=== PATIENT | female | born 1980 | race African-American/Black ===

== ENCOUNTER 2017-11-05 13:34 | Inpatient (IN) ==
[2017-11-05] MEDS ORDERED: MAGNESIUM SULF RIDER 100 ML IV ONE (14:00)
[2017-11-05 14:25] LABS: Basophils # 0.1 10*3/uL (0.0-0.2); Basophils % 0.5 % (0.0-0.8); Eosinophils # 0.4 10*3/uL (0.0-0.87); Eosinophils % 2.6 % (0.00-10.9); Hematocrit 38.3 VOL% (35.7-47.0); Hemoglobin 13.3 GM/DL (12.0-16.0); Immature Granulocytes % 0.9 %; Immature Granulocytes Absolute 0.15 #; Lymphocytes # 2.4 10*3/uL (1.4-4.0); Mean Corpuscular HGB Conc 34.7 GM/DL (32-36); Mean Corpuscular Hemoglobin 35 PG (27-34); Mean Corpuscular Volume 99.2 FL (87-102); Mean Platelet Volume 11.3 FL (9.6-12.0); Monocytes # 1.1 10*3/uL (0.11-0.8); Monocytes % 6.2 % (1.7-12.7); Neutrophils # 12.9 10*3/uL (1.4-7.4); Neutrophils % 75.8 % (38.7-73.9); Platelet Count 171 T/CUMM (130-400); Red Blood Count 3.86 MC/CUMM (3.8-5.5); Red Cell Distribution Width 13.3 % (9.3-17.3)
[2017-11-05] MEDS: AMPICILLIN INJ 2,000 MG in SODIUM CHLORIDE 0.9% 100 ML IV SCH ×2 (14:29→20:50)
[2017-11-05] MEDS: LACTATED RINGERS 1,000 ML IV SCH ×2 (14:31→21:01)
[2017-11-05] MEDS ORDERED: MAGNESIUM SULF DRIP 40 GM/1,000 ML ML IV ONE (15:07)
[2017-11-05] MEDS ORDERED: CALCIUM GLUCONATE 1,000 MG in SODIUM CHLORIDE 0.9% 100 ML IV PRN (15:09)
[2017-11-05 15:22] LABS: Apearance,Urine CLEAR (Clear); Bilirubin,Urine Negative (Negative); Blood, Urine Negative (Negative); Glucose,Urine (UA) Negative (Negative); Ketones,Urine Negative (Negative); Mucus,Urine Occasional /LPF (Occasional); Nitrite,Urine Negative (Negative); Protein,Urine Negative; RBC,Urine 1 /HPF (0-4); Squamous Epithelial Cell,Urine Occasional /HPF (0-10); Urine Color Yellow (Yellow); Urine Specific Gravity 1.013 (1.001-1.035); Urine Urobilinogen < 2.0 EU/DL (0.2-1.0); WBC,Urine 1 /HPF (0-6)
[2017-11-05] MEDS: MAGNESIUM SULF DRIP 40 GM/1,000 ML ML IV SCH (15:32)
[2017-11-05 15:35] LABS: Barbiturates Screen,Urine Negative (Negative); Benzodiazepines Screen,Urine Negative (Negative); Cannabinoid Screen,Urine Positive (Negative); Opiate Screen,Urine Negative (Negative); Phencyclidine Screen,Urine Negative (Negative)
[2017-11-05] MEDS ORDERED: MAGNESIUM SULF RIDER 2 GM in PREMIX 1 EACH IV SCH (18:00)
[2017-11-05] MEDS: ONDANSETRON 4 MG/2 ML VIAL IV PRN (19:41)
[2017-11-05] MEDS: BUTORPHANOL 2 MG/ML VIAL IV PRN (22:46)
[2017-11-05] MEDS: PROMETHAZINE 25 MG/1 ML VIAL IM PRN (23:33)
[2017-11-06] MEDS: AMPICILLIN INJ 2,000 MG in SODIUM CHLORIDE 0.9% 100 ML IV SCH ×4 (02:36→20:00)
[2017-11-06] MEDS: ACETAMINOPHEN 500 MG TABLET PO PRN ×2 (02:39→22:44)
[2017-11-06] MEDS: ONDANSETRON 4 MG/2 ML VIAL IV PRN ×3 (06:38→20:00)
[2017-11-06] MEDS ORDERED: AZITHROMYCIN 250 MG TABLET PO ONE (09:00)
[2017-11-06] MEDS: LACTATED RINGERS 1,000 ML IV SCH (09:49)
[2017-11-06] MEDS: MAGNESIUM SULF DRIP 40 GM/1,000 ML ML IV SCH (11:15)
[2017-11-06] MEDS ORDERED: NIFEdipine 10 MG CAPSULE PO SCH (19:30)
[2017-11-06] MEDS: PROMETHAZINE 25 MG/1 ML VIAL IM PRN (20:00)
[2017-11-06] MEDS: DOCUSATE SODIUM 100 MG CAPSULE PO SCH (22:26)
[2017-11-07] MEDS: AMPICILLIN INJ 2,000 MG in SODIUM CHLORIDE 0.9% 100 ML IV SCH ×2 (02:30→08:39)
[2017-11-07] MEDS: NIFEdipine 10 MG CAPSULE PO SCH ×6 (04:00→19:59)
[2017-11-07] MEDS: ONDANSETRON 4 MG/2 ML VIAL IV PRN ×2 (08:41→21:50)
[2017-11-07 14:44] LABS: Basophils # 0.1 10*3/uL (0.0-0.2); Basophils % 0.4 % (0.0-0.8); Eosinophils # 0.4 10*3/uL (0.0-0.87); Eosinophils % 2.4 % (0.00-10.9); Hematocrit 40.1 VOL% (35.7-47.0); Hemoglobin 13.9 GM/DL (12.0-16.0); Immature Granulocytes Absolute 0.17 #; Lymphocytes # 2.3 10*3/uL (1.4-4.0); Lymphocytes % 14.1 % (21.3-54.2); Mean Corpuscular HGB Conc 34.7 GM/DL (32-36); Mean Corpuscular Hemoglobin 35 PG (27-34); Mean Corpuscular Volume 101.3 FL (87-102); Mean Platelet Volume 10.9 FL (9.6-12.0); Monocytes # 1.3 10*3/uL (0.11-0.8); Monocytes % 8.1 % (1.7-12.7); Neutrophils # 12.2 10*3/uL (1.4-7.4); Platelet Count 187 T/CUMM (130-400); Red Blood Count 3.96 MC/CUMM (3.8-5.5); Red Cell Distribution Width 13.4 % (9.3-17.3); White Blood Count 16.5 T/CUMM (4-12)
[2017-11-07 15:08] LABS: Albumin 2.8 G/DL (3.4-5.0); Bilirubin,Total 0.5 MG/DL (0.2-1.0); Calcium 7.7 MG/DL (8.5-10.1); Potassium 3.6 MMOL/L (3.5-5.1); Total Protein 7.1 G/DL (6.4-8.3)
[2017-11-07 15:55] LABS: Apearance,Urine CLEAR (Clear); Bacteria,Urine Occasional /HPF (Few); Bilirubin,Urine Negative (Negative); Blood, Urine Small mg/dL (Negative); Glucose,Urine (UA) Negative (Negative); Ketones,Urine 20 mg/dL (Negative); Mucus,Urine Occasional /LPF (Occasional); Nitrite,Urine Negative (Negative); Protein,Urine Negative; RBC,Urine 3 /HPF (0-4); Squamous Epithelial Cell,Urine Occasional /HPF (0-10); Urine Color Yellow (Yellow); Urine Specific Gravity 1.011 (1.001-1.035); WBC,Urine 2 /HPF (0-6)
[2017-11-07] MEDS ORDERED: METOCLOPRAMIDE 10 MG TABLET PO SCH (16:30)
[2017-11-07] MEDS ORDERED: AMPICILLIN 500 MG CAPSULE PO SCH (18:14)
[2017-11-07] MEDS ORDERED: LACTATED RINGERS 1,000 ML IV SCH (19:00)
[2017-11-07] MEDS: DOCUSATE SODIUM 100 MG CAPSULE PO SCH (21:49)
[2017-11-07] MEDS ORDERED: AMOXICILLIN 500 MG CAPSULE PO SCH (22:00)
[2017-11-08 00:09] VITALS: BP 113/73
[2017-11-08] MEDS: ONDANSETRON 4 MG/2 ML VIAL IV PRN (03:06)
[2017-11-08] MEDS: PROMETHAZINE 25 MG/1 ML VIAL IM PRN (03:06)
[2017-11-08] MEDS: BUTORPHANOL 2 MG/ML VIAL IV PRN (04:36)
[2017-11-08] MEDS: NIFEdipine 10 MG CAPSULE PO SCH ×2 (04:52)
[2017-11-08 05:21] LABS: Basophils % 0.2 % (0.0-0.8); Eosinophils # 0.1 10*3/uL (0.0-0.87); Eosinophils % 0.9 % (0.00-10.9); Hematocrit 36.5 VOL% (35.7-47.0); Hemoglobin 13.2 GM/DL (12.0-16.0); Immature Granulocytes % 0.7 %; Immature Granulocytes Absolute 0.07 #; Lymphocytes # 0.6 10*3/uL (1.4-4.0); Lymphocytes % 6.4 % (21.3-54.2); Mean Corpuscular HGB Conc 36.2 GM/DL (32-36); Mean Corpuscular Hemoglobin 35 PG (27-34); Mean Corpuscular Volume 97.1 FL (87-102); Mean Platelet Volume 10.6 FL (9.6-12.0); Monocytes # 0.1 10*3/uL (0.11-0.8); Monocytes % 1.3 % (1.7-12.7); NRBC # 0.02 10*3/uL; Neutrophils # 8.6 10*3/uL (1.4-7.4); Neutrophils % 90.5 % (38.7-73.9); Platelet Count 159 T/CUMM (130-400); Red Blood Count 3.76 MC/CUMM (3.8-5.5); Red Cell Distribution Width 13.2 % (9.3-17.3); White Blood Count 9.5 T/CUMM (4-12)
[2017-11-08] MEDS ORDERED: LIDOCAINE 1% 50 ML VIAL ONE (05:32)
[2017-11-08] MEDS ORDERED: miSOPROStol 200 MCG TABLET ONE (05:32)
[2017-11-08] MEDS ORDERED: SODIUM CHLORIDE 0.9% 1,000 ML IV PRN (05:32)
[2017-11-08] MEDS ORDERED: CARBOPROST TROMETHAMINE 250 MCG/ML AMP IM ONE ×2 (05:33→06:42)
[2017-11-08] MEDS ORDERED: METHYLERGONOVINE 0.2 MG/1 ML AMP ONE ×3 (05:33→06:33)
[2017-11-08] MEDS ORDERED: OXYTOCIN/LR 20 UNIT/1,000 ML BAG IV ONE ×2 (05:34→06:59)
[2017-11-08] MEDS ORDERED: CITRIC ACID/SODIUM CITRATE 30 ML UDCUP ONE (05:54)
[2017-11-08] MEDS ORDERED: FAMOTIDINE 20 MG/2 ML VIAL IV ONE (06:01)
[2017-11-08] MEDS ORDERED: ceFAZolin 2,000 MG in PREMIX 1 EACH IV ONE (06:03)
[2017-11-08] MEDS ORDERED: CITRIC ACID/SODIUM CITRATE 30 ML UDCUP PO ONE (06:30)
[2017-11-08] MEDS ORDERED: RHO(D) IMMUNE GLOBULIN 300 MCG SYRINGE IM ONE (06:59)
[2017-11-08] MEDS ORDERED: ACETAMINOPHEN 325 MG TABLET PO PRN (06:59)
[2017-11-08] MEDS ORDERED: BENZOCAINE 20%/MENTHOL 0.5% SPRAY 56 GM CAN TOP PRN (06:59)
[2017-11-08] MEDS ORDERED: HYDROCORTISONE 2.5% RECTAL CREAM 30 GM TUBE TOP PRN (06:59)
[2017-11-08] MEDS ORDERED: LANOLIN 50% CREAM 0.3 OZ TUBE TOP PRN (06:59)
[2017-11-08] MEDS ORDERED: DIPH/TET/ACEL PERT BOOSTER VACCINE 0.5 ML VIAL IM ONE (06:59)
[2017-11-08] MEDS ORDERED: ONDANSETRON 4 MG/2 ML VIAL IV PRN (06:59)
[2017-11-08] MEDS ORDERED: IBUPROFEN 800 MG TABLET PO PRN (06:59)
[2017-11-08] MEDS ORDERED: WITCH HAZEL PADS 100/JAR TOP PRN (06:59)
[2017-11-08] MEDS ORDERED: MEASLES/MUMPS/RUBELLA VACCINE 0.5 ML VIAL SUBCUT ONE (06:59)
[2017-11-08] MEDS ORDERED: BISACODYL 10 MG SUPP RECTAL PRN (06:59)
[2017-11-08] MEDS ORDERED: oxyCODONE/ACETAMINOPHEN 5-325 MG TABLET PO PRN ×2 (06:59)
[2017-11-08] MEDS ORDERED: METHYLERGONOVINE 0.2 MG TABLET PO SCH (07:00)
[2017-11-08] MEDS ORDERED: ESMOLOL 100 MG/10 ML VIAL IV ONE (07:08)
[2017-11-08] MEDS ORDERED: SEVOFLURANE 1 UNIT/15 MINUTE INH ONE (07:36)
[2017-11-08] MEDS ORDERED: ROCURONIUM 100 MG/10 ML VIAL IV ONE (07:37)
[2017-11-08] MEDS ORDERED: fentaNYL 100 MCG/2 ML VIAL ONE (07:37)
[2017-11-08] MEDS ORDERED: SUCCINYLCHOLINE 200 MG/10 ML VIAL ONE (07:37)
[2017-11-08] MEDS ORDERED: MIDAZOLAM 2 MG/2 ML VIAL ONE (07:37)
[2017-11-08] MEDS ORDERED: ONDANSETRON 4 MG/2 ML VIAL ONE (07:38)
[2017-11-08] MEDS ORDERED: PROPOFOL 200 MG/20 ML VIAL IV ONE (07:38)
[2017-11-08] MEDS ORDERED: DOCUSATE SODIUM 100 MG CAPSULE PO SCH (09:00)
[2017-11-08 14:18] LABS: Hematocrit 35.8 VOL% (35.7-47.0); Hemoglobin 12.5 GM/DL (12.0-16.0)
[2017-11-08] MEDS ORDERED: ZALEPLON 5 MG CAPSULE PO ONE (22:47)
[2017-11-09 05:45] LABS: Basophils # 0.1 10*3/uL (0.0-0.2); Basophils % 0.4 % (0.0-0.8); Eosinophils # 0.4 10*3/uL (0.0-0.87); Eosinophils % 2.5 % (0.00-10.9); Hematocrit 31.2 VOL% (35.7-47.0); Immature Granulocytes % 1.5 %; Immature Granulocytes Absolute 0.23 #; Lymphocytes # 1.3 10*3/uL (1.4-4.0); Lymphocytes % 8.2 % (21.3-54.2); Mean Corpuscular HGB Conc 35.3 GM/DL (32-36); Mean Corpuscular Hemoglobin 31 PG (27-34); Mean Corpuscular Volume 88.9 FL (87-102); Mean Platelet Volume 11.1 FL (9.6-12.0); Monocytes # 1.1 10*3/uL (0.11-0.8); Monocytes % 7.1 % (1.7-12.7); NRBC # 0.03 10*3/uL; Neutrophils # 12.5 10*3/uL (1.4-7.4); Neutrophils % 80.3 % (38.7-73.9); Platelet Count 126 T/CUMM (130-400); Red Blood Count 3.51 MC/CUMM (3.8-5.5); White Blood Count 15.6 T/CUMM (4-12)
== END 2017-11-09 08:00 | disposition home or self-care (01) | DRG 541 ==
LOC: N.LDOUT 13:34 → N.LD 13:35
PROVIDERS: ADMIT Specialist; ATTEND Obstetrics & Gynecology